=== PATIENT | male | born 1985 | race African-American/Black ===

== ENCOUNTER 2018-01-09 13:28 | Emergency (ER) | payer MEDICAID ==
[~2018-01-09] VITALS: Ht 167.6 cm; Wt 74.0 kg
[2018-01-09] MEDS ORDERED: KETOROLAC 60MG/2ML VIAL IM ONE (16:30)
[2018-01-09 17:37] VITALS: BP 123/77
== END 2018-01-09 17:41 | disposition home or self-care (01) ==
LOC: ER 13:28
DX: M25.542 Pain in joints of left hand (principal); M25.541 Pain in joints of right hand; M25.572 Pain in left ankle and joints of left foot; M25.571 Pain in right ankle and joints of right foot
CPT/HCPCS: 73110; 73610; 96372; 99284; J1885

== ENCOUNTER 2022-04-26 00:37 | Emergency (ER) | payer MEDICAID ==
[~2022-04-26] VITALS: Ht 167.6 cm; Wt 89.0 kg
[2022-04-26 00:48] VITALS: BP 125/92
[2022-04-26] MEDS ORDERED: PENICILLIN G BENZATHINE 2,400,000 UNITS/4ML SYR IM ONE (03:00)
[2022-04-26] MEDS ORDERED: ACETAMINOPHEN 500MG TABLET PO ONE (03:15)
[2022-04-26] MEDS ORDERED: ACET-2708 MT (03:37)
[2022-04-26] MEDS ORDERED: GUAI600T26 MT (03:38)
== END 2022-04-26 03:51 | disposition home or self-care (01) ==
LOC: ER 00:37
DX: B34.9 Viral infection, unspecified (principal)
CPT/HCPCS: 71045; 86592; 86593; 86780; 96372; 99284; J0561